=== PATIENT | male | born 1965 | race Caucasian/White ===

== ENCOUNTER 2020-04-09 09:21 | Outpatient (CLI) | payer MEDICARE, SELFPAY ==
[2020-04-09 09:46] LABS: Basophils # 0.1 10^3/uL (0.0-0.1); Basophils % 1.2 %; Eosinophils # 0.5 10^3/uL (0.0-0.8); Eosinophils % 9.2 %; Hematocrit 42.8 % (42.0-52.0); Hemoglobin 14.3 g/dL (11.7-16.6); Lymphocytes # 1.3 10^3/uL (0.8-4.8); Lymphocytes % 25.1 %; Mean Corpuscular HGB Conc 33.4 g/dL (30.0-36.0); Mean Corpuscular Hemoglobin 33.4 pg (28.0-34.0); Mean Platelet Volume 10.2 fL (7.4-10.4); Monocytes # 0.4 10^3/uL (0.2-0.9); Monocytes % 7.9 %; Neutrophils # 2.87 10^3/uL (1.8-7.7); Neutrophils % 56.4 %; Nucleated Red Blood Cells % 0 %; Platelet Count 94 10^3/cmm (130-400); Red Blood Count 4.28 10^6/uL (4.1-5.3); Red Cell Distribution Width 13.5 % (12.1-15.1); White Blood Count 5.1 10^3/uL (4.0-10.0)
[2020-04-09 10:03] LABS: Alanine Aminotransferase 35 U/L (0-41); Alkaline Phosphatase 57 IU/L (40-130); Anion Gap 11.8 (5-19); Aspartate Amino Transferase 45 U/L (0-40); Blood Urea Nitrogen 18 mg/dL (6-20); Calcium 8.9 mg/dL (8.5-10.5); Carbon Dioxide 27 mmol/L (22-29); Chloride 108 mmol/L (98-107); Chol HDL Ratio 2.05 mg/dL (1.0-5.00); Cholesterol 121 mg/dL (0-200); Globulin 2.2 g/dL (1.3-4.6); Glomerular Filtration Rate 100.7 mL/min (90-130); Glucose 142 mg/dL (65-115); HDL Cholesterol 59 mg/dL (60-100); LDL Cholesterol Calculated 53 mg/dL (50-129); Osmolality Calculated 298 mOsm/kg (285-295); Potassium 4.8 mmol/L (3.5-5.1); Sodium 142 mmol/L (136-145); Total Bilirubin 0.7 mg/dL (0.15-1.2); Total Protein 6.2 g/dL (6.6-8.7); Triglycerides 44 mg/dL (0-150)
[2020-04-09 10:04] LABS: Ammonia 33 umol/L (16-60)
[2020-04-09 10:19] LABS: Creatinine Urine, Random 61 mg/dL (39-259)
[2020-04-09 10:21] LABS: Microalbum Creatinine Ratio Ur 16 mg/dL (0-20); Microalbumin Random Urine < 1 ug/dL (0-20)
[2020-04-09 10:54] LABS: Estmated Average Glucose 120; Hemoglobin A1C 5.8 % (4.0-6.0)
== END 2020-04-09 09:22 | disposition home or self-care (01) ==
LOC: LAB 09:26
PROVIDERS: PCP Family Medicine; Visit Provider Family Medicine
DX: K70.30 Alcoholic cirrhosis of liver without ascites (principal); R73.03 Prediabetes; Z13.6 Encounter for screening for cardiovascular disorders
CPT/HCPCS: 80053; 80061; 82044; 82140; 83036; 85025

== ENCOUNTER → 2020-04-24 14:32 | Outpatient (BNVA) | payer MEDICARE, SELFPAY | PROVIDERS: PCP Family Medicine; Visit Provider Internal Medicine | DX: I85.00 Esophageal varices without bleeding (principal); K76.6 Portal hypertension; K70.30 Alcoholic cirrhosis of liver without ascites | CPT/HCPCS: 82105; 87635 ==

== ENCOUNTER 2020-04-28 08:54 | Day surgery (SDC) | payer MEDICARE, SELFPAY ==
[2020-04-25 07:26] VITALS: BMI 20.9
[2020-04-28 09:15] VITALS: BP 104/60; PULSE 61; RESP 18; TEMP 36.2; O2SAT 96
--- NOTE | 2020-04-28 09:19 | W.PM.OPSUD ---
Surgery/Procedure H&P Update DATE OF PROCEDURE: April 28, 2020 DATE H&P PERFORMED: 04/24/20 PREOP DIAGNOSIS: serena PLANNED PROCEDURE: Operation Date: 04/28/20 09:35 Proposed Procedures p EGD 43182 i85.00(Not Applicable) - Darron Tripp MD
[2020-04-28] MEDS: sodium chloride 0.9% 1,000 ML 30 ML IV (09:40)
--- NOTE | 2020-04-28 09:47 | ANES.PREANE2 ---
Pre-Anesthetic Assessment Pre-Anesthetic Assessment: Height/Weight: Height 1.85 m Weight 72.121 kg Temp Pulse Resp BP Pulse Ox 97.1 F L 61 18 104/60 96 04/28/20 09:15 04/28/20 09:15 04/28/20 09:15 04/28/20 09:15 04/28/20 09:15 Preop Diagnosis: serena Proposed Procedure: Operation Date: 04/28/20 09:35 Proposed Procedures p EGD 04927 i85.00(Not Applicable) - Darron Tripp MD Was Beta Ginger taken within 24 hours: Yes Last intake: Intake Last Liquid Date 04/28/20 Last Liquid Time 08:00 Last Solid Date 04/27/20 Last Solid Time 19:00 Social: Social History: No alcohol and No tobacco Exam: Pre-Anes Outpt Exam: alert, oriented x 3, clear to auscultation bilaterally and regular rate & rhythm Airway: Submandibular: WNL Cervical ROM: WNL MP: 1 History/ROS: No significant history except as noted Pulmonary: Pulmonary: None reported CV/HEM: CV/HEM: HTN : : None reported Hepatic: Hepatic: Cirrohsis GI: GI: GERD Metabolic: Metabolic: None reported Musc/skel: Musc/skel: None reported Neuropsych: Neuropsych: None reported Anesthetic Plan: ASA status: 2 Anesthesia: MAC Meds/Allergies Current Medications: Current Medications Generic Name Dose Route Start Last Admin Trade Name Freq PRN Reason Stop Dose Admin Sodium Chloride 1,000 mls @ 30 ml s/hr 04/28/20 09:30 04/28/20 09:40 Sodium Chloride 0.9% IV 30 mls/hr .Q24H RONNELL Administration PFSH Anesthesia PFSH: Medical History Alcoholic cirrhosis of liver Esophageal varices underwent banding in 2016 GERD (gastroesophageal reflux disease) History of abdominal paracentesis due to ascites in 2016 Hypotension Osteoarthritis Portal hypertension Prediabetes Thrombocytopenia Surgical History No pertinent past surgical history Family History Other Cancer Social History (Updated 04/24/20 @ 14:[address]) Smoking and tobacco status: never smoked Alcohol intake: former Year of sobriety/quit date alcohol: 2014 History of recent travel: No Data Anesthesia Cardiac Studies: No Data to Display
[2020-04-28 10:05] VITALS: BP 93/62; PULSE 66; RESP 16; TEMP 36.4; O2SAT 95
--- NOTE | 2020-04-28 10:08 | ANES.PREANE2 ---
Pre-Anesthetic Assessment Pre-Anesthetic Assessment: Height/Weight: Height 1.85 m Weight 72.121 kg Temp Pulse Resp BP Pulse Ox 97.1 F L 61 18 104/60 96 04/28/20 09:15 04/28/20 09:15 04/28/20 09:15 04/28/20 09:15 04/28/20 09:15 Preop Diagnosis: serena Proposed Procedure: Operation Date: 04/28/20 09:35 Proposed Procedures p EGD 21730 i85.00(Not Applicable) - Darron Tripp MD Last intake: Intake Last Liquid Date 04/28/20 Last Liquid Time 08:00 Last Solid Date 04/27/20 Last Solid Time 19:00 Social: Social History: No alcohol and No tobacco Exam: Pre-Anes Outpt Exam: alert, oriented x 3, clear to auscultation bilaterally and regular rate & rhythm Airway: Submandibular: WNL Cervical ROM: WNL MP: 1 Dentition: Caps History/ROS: No significant complaints Pulmonary: Pulmonary: None reported CV/HEM: CV/HEM: None reported Meds/Allergies Current Medications: Current Medications Generic Name Dose Route Start Last Admin Trade Name Freq PRN Reason Stop Dose Admin Sodium Chloride 1,000 mls @ 30 ml s/hr 04/28/20 09:30 04/28/20 09:40 Sodium Chloride 0.9% IV 30 mls/hr .Q24H RONNELL Administration PFSH Anesthesia PFSH: Medical History Alcoholic cirrhosis of liver Esophageal varices underwent banding in 2016 GERD (gastroesophageal reflux disease) History of abdominal paracentesis due to ascites in 2016 Hypotension Osteoarthritis Portal hypertension Prediabetes Thrombocytopenia Surgical History No pertinent past surgical history Family History Other Cancer Social History (Updated 04/24/20 @ 14:00 by Sujatha Alberts, CT) Smoking and tobacco status: never smoked Alcohol intake: former Year of sobriety/quit date alcohol: 2014 History of recent travel: No Data Anesthesia Cardiac Studies: No Data to Display
[2020-04-28 10:35] VITALS: BP 112/73; PULSE 56; RESP 16; O2SAT 99
--- NOTE | 2020-04-28 15:06 | ANE.PACU2 ---
Inpatient post-anesthesia follow up: Airway intact: Yes Vital signs: Temperature 97.5 F Pulse Rate 56 Respiratory Rate 16 Blood Pressure 112/73 Pulse Oximetry 99 Oxygen Delivery Me thod Room Air Oxygen Flow Rate Fraction of Inspir ed Oxygen Hydration adequate: Yes Nausea and vomiting: No Pain level: 1 Mental status: Baseline
[2020-04-29 07:02] LABS: H. Pylori / CLO Test Negative
== END 2020-04-28 11:10 | disposition home or self-care (01) ==
PROVIDERS: PCP Family Medicine; Visit Provider Internal Medicine
PROC: 0DJ08ZZ Inspection of Upper Intestinal Tract, Via Natural or Artificial Opening Endoscopic (ICD-10-PCS; CPT 43235; principal; 2020-04-28 09:35)
DX: K22.70 Barrett's esophagus without dysplasia (principal); I10 Essential (primary) hypertension; K21.9 Gastro-esophageal reflux disease without esophagitis; K74.60 Unspecified cirrhosis of liver; K76.6 Portal hypertension; K29.60 Other gastritis without bleeding
CPT/HCPCS: 12345; 43239; 87077; 88305; J2704; J3010; J7030

== ENCOUNTER 2020-05-29 09:01 | Outpatient (CLI) | payer MEDICARE, OTHER, SELFPAY ==
--- NOTE | 2020-05-29 09:30 | US_ITS ---
WS: [id number] RIGHT UPPER QUADRANT ULTRASOUND HISTORY: Cirrhosis. COMPARISON: None available. Liver: 14.0 cm in length. Normal size liver. There is a very mild coarsening of the echotexture. Surf abhi of the liver is very slightly undulating. No bile duct dilatation. Gallbladder: Normally distended gallbladder with no stones or wall thickening. CBD: 0.4 cm Pancreas: Normal size and echogenicity. Right kidney: 9.8 cm in length. Normal size and echogenicity. No hydronephrosis or mass. Aorta and IVC: Unremarkable abdominal aorta and IVC. No ascites. US/US liver [id number] IMPRESSION: Changes of mild hepatic cirrhosis. Otherwise negative.
== END 2020-05-29 09:02 | disposition home or self-care (01) ==
LOC: RAD 09:09
PROVIDERS: PCP Family Medicine; Visit Provider Internal Medicine
DX: K70.30 Alcoholic cirrhosis of liver without ascites (principal)
CPT/HCPCS: 76705

== ENCOUNTER 2020-09-07 11:16 | Emergency (ER) | payer MEDICARE, SELFPAY ==
[2020-09-07 11:23] VITALS: BP 145/80; PULSE 60; RESP 18; TEMP 37.1; O2SAT 99; BMI 20.9
[2020-09-07 12:04] VITALS: BP 138/68; PULSE 60; O2SAT 96
--- NOTE | 2020-09-07 12:15 | CTR_ITS ---
PROCEDURE INFORMATION: Exam: CT Chest Without Contrast; Diagnostic Exam date and time: 09/07/2020 12:19 PM Age: 55 years old Clinical indication: Injury or trauma; Fall; Rlq; Blunt trauma (contusions or hematomas) TECHNIQUE: Imaging protocol: Diagnostic computed tomography of the chest without contrast. Radiation optimization: All CT scans at this facility use at least one of these dose optimization techniques: automated exposure control; mA and/or kV adjustment per patient size (includes targeted exams where dose is matched to clinical indication); or iterative reconstruction. COMPARISON: No relevant prior studies available. RADIATION DOSE METRICS: Total DLP (mGy-cm): 1182.72 FINDINGS: Thyroid: The bilateral thyroid lobes are unremarkable. Lungs: Incidental partial medial left lower lobe pulmonary-systemic venous return (series 2, images 43-57; 602, images 33-37) Pleural spaces: No pneumothorax identified. No pleural effusion demonstrated. Heart: Atherosclerotic coronary calcifications are noted involving the left main and LAD coronary arteries. Mediastinal space: No mediastinal hematoma identified. Aorta: Mild aortic arch and branch atherosclerotic calcification without ectasia. Lymph nodes: No enlarged lymph nodes. Bones/joints: No acute thoracic spine or sternal fracture identified. Nondisplaced lateral left 8th rib fracture (series 601, image 15; series 602, image 32). Thoracic spine vertebral body marginal osteophytes are noted at multiple levels. Diffuse osteopenia. No acute thoracic spine or sternal fracture identified. Soft tissues: Mild bilateral gynecomastia. IMPRESSION: 1. Nondisplaced lateral left 8th rib fracture. 2. Coronary atherosclerosis. 3. Please see the abdomen/pelvis CT report of the same date for additional findings. PROCEDURE INFORMATION: Exam: CT Abdomen And Pelvis Without Contrast Exam date and time: 09/07/2020 12:19 PM Age: 55 years old Clinical indication: Injury or trauma; Fall; Rlq; Blunt trauma (contusions or hematomas) TECHNIQUE: Imaging protocol: Computed tomography of the abdomen and pelvis without contrast. Radiation optimization: All CT scans at this facility use at least one of these dose optimization techniques: automated exposure control; mA and/or kV adjustment per patient size (includes targeted exams where dose is matched to clinical indication); or iterative reconstruction. COMPARISON: No relevant prior studies available. RADIATION DOSE METRICS: Total DLP (mGy-cm): 1182.72 FINDINGS: Liver: There is a nodular contour to the liver and hypertrophy of the left lobe lateral segment and caudate lobe, consistent with hepatic cirrhosis. Heterogeneous right lobe hepatic parenchymal density, with areas of hypoattenuation within portions of hepatic segments 8, 5 and 6. Gallbladder and bile ducts: The gallbladder is partially contracted. Pancreas: Normal. No ductal dilation. Spleen: Normal. No splenomegaly. Adrenal glands: Normal. No mass. Kidneys and ureters: Right mid renal posterior 1.7 mm calyceal calculus. No specific evidence of acute obstructive uropathy. Stomach and bowel: Nonspecific mild wall thickening of left upper pelvic and left lower abdominal small bowel loops (series 605, image 32). Appendix: The vermiform appendix is not identified on this examination. There is, however, no pericecal abnormality to suggest appendicitis. The vermiform appendix is normal. Intraperitoneal space: Unremarkable. No free air. No significant fluid collection. Vasculature: Possible cavernous transformation of the portal vein. A retroaortic left renal vein is present. Spontaneous splenorenal shunt. Mild aortic atherosclerotic calcification without aneurysm. The right iliac arteries show mild atherosclerotic calcifications without evidence of aneurysm. Lymph nodes: No enlarged lymph nodes. Urinary bladder: Unremarkable as visualized. Reproductive: Unremarkable as visualized. Bones/joints: Diffuse osteopenia. Mild L5-S1 spondylosis. No acute lumbar spine fracture identified. No pelvic or sacral fracture identified. Soft tissues: A small left inguinal hernia is present containing only intra-abdominal fat. CT/CT chest abd pel wo con IMPRESSION: 1. Lack of IV contrast reduces sensitivity to abdominal solid visceral organ traumatic injury. IV contrast enhanced imaging may add additional useful information if not contraindicated. 2. Hepatic cirrhosis. Heterogeneous parenchymal density. Correlation with AFP recommended. MRI recommended for further evaluation. 3. 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 4. Spontaneous splenorenal shunt. 5. Nonspecific mild wall thickening of left upper pelviclower abdominal small bowel loops. This may represent hepatic enteropathy, but given the history of trauma, bowel bowel injury is difficult to exclude. Contrast-enhanced imaging may be helpful. 6. Right renal calyceal lithiasis. 7. Please see the CT chest report of the same date for additional findings. Radiation Dose CTDIVOL = (mGy): DLP = 1182.72~1182.72 (mGy-cm)
--- NOTE | 2020-09-07 12:15 | CTR_ITS ---
PROCEDURE INFORMATION: Exam: CT Head Without Contrast Exam date and time: 09/07/2020 12:19 PM Age: 55 years old Clinical indication: Pain and injury or trauma; Fall; Blunt trauma (contusions or hematomas); Headache; Additional info: Fall. Headache TECHNIQUE: Imaging protocol: Computed tomography of the head without contrast. Radiation optimization: All CT scans at this facility use at least one of these dose optimization techniques: automated exposure control; mA and/or kV adjustment per patient size (includes targeted exams where dose is matched to clinical indication); or iterative reconstruction. COMPARISON: No relevant prior studies available. RADIATION DOSE METRICS: Total DLP (mGy-cm): 867.49 FINDINGS: Brain: Normal. No hemorrhage. Unremarkable white matter. No mass effect. Cerebral ventricles: No hydrocephalus or evidence of increased intracranial pressure. Bones/joints: No acute abnormality. No acute fracture. Paranasal sinuses: Visualized sinuses are unremarkable. No fluid levels. Mastoid air cells: Visualized mastoid air cells are well aerated. Soft tissues: Unremarkable. CT/CT head wo con* [id number] IMPRESSION: No acute intracranial injury identified. Radiation Dose CTDIVOL = (mGy): DLP = 867.49 (mGy-cm)
--- NOTE | 2020-09-07 12:15 | CTR_ITS ---
PROCEDURE INFORMATION: Exam: CT Cervical Spine Without Contrast Exam date and time: 09/07/2020 12:19 PM Age: 55 years old Clinical indication: Injury or trauma; Fall; Blunt trauma; Additional info: Fall/neck pain TECHNIQUE: Imaging protocol: Computed tomography images of the cervical spine without contrast. Radiation optimization: All CT scans at this facility use at least one of these dose optimization techniques: automated exposure control; mA and/or kV adjustment per patient size (includes targeted exams where dose is matched to clinical indication); or iterative reconstruction. COMPARISON: No relevant prior studies available. RADIATION DOSE METRICS: Total DLP (mGy-cm): 545.72 FINDINGS: Bones/joints: Mild C5-C6 retrolisthesis with slight spondylosis. Discs/Spinal canal/Neural foramina: Mild right C4-C5 primary facet osteoarthritis. Moderate left C5-C6 neural foraminal narrowing. Lungs: A 3.5 mm noncalcified pulmonary nodule is noted in the apical segment of the right upper lobe (LOC 177). Mild bilateral apical pleuroparenchymal scarring. Vasculature: Bilateral carotid atherosclerotic calcifications. Soft tissues: Unremarkable. CT/CT cervical spin wo con* [id number] IMPRESSION: 1. Degenerative changes as above. 2. No acute cervical spinal bony injury identified. 3. Noncalcified right upper lobe pulmonary nodule. For patients at low risk (minimal or absent history of smoking and of other known risk factors), no routine follow-up is indicated. For patients at high risk (history of smoking or of other known risk factors), consider optional CT at 12 months. (Gordon et al., Fleischner Society, 2017). Radiation Dose CTDIVOL = (mGy): DLP = 545.72 (mGy-cm)
--- NOTE | 2020-09-07 12:17 | W.ED.FALL ---
HPI - Fall General: Chief Complaint: Fall Stated Complaint: FELL DOWN STAIRS/NOW R SIDE PAIN/SWELLING Time Seen by Provider: 09/07/20 12:04 History of Present Illness: HPI Narrative: The patient is a 55-year-old male with past medical history cirrhosis who comes to the ER after a fall. He says he fell down 6 wooden stairs after he slipped on the morning do and he is complaining of left lateral rib pain and right lower abdominal pain and swelling right above his hip bone. Also headache and neck pain related to the fall but no significant injuries there. He was able to walk after the injury but the pain continues to get more severe and he is worried about the swelling on the right side with his liver cirrhosis. MD complaint: fall Fall from: standing and down stairs (#) (6) Fall witnessed: no Place fall occurred: home Loss of consciousness: None Prolonged down time: no Symptoms prior to fall: none Context: tripped/slipped Location of injury: head, neck, chest and abdomen Severity: moderate Quality: sharp Associated symptoms-after fall: Reports abdominal pain and neck pain; Denies chest pain, confusion, difficulty walking or headache(s) Review of Systems General: Reports: 10 or more systems reviewed and unremarkable except in HPI and below Const: Denies: fatigue Eyes: Denies: change in vision, blurry vision or eye redness ENMT: Denies: throat pain, swelling of lips/tongue, ear or mastoid pain or nasal congestion Card: Denies: chest pain, palpitations, irregular heart rhythm, edema, dyspnea on exertion or orthopnea Resp: Reports: other (Pain with inspiration); Denies: dyspnea, productive cough or non-productive cough GI: Reports: abdominal pain; Denies: diarrhea or GI cramping : Denies: flank pain, urinary frequency or urinary urgency Musc: Reports: neck pain and back pain; Denies: extremity pain, joint pain, joint redness, limited range of motion or muscle weakness Skin/Breast: Denies: rash, pruritus, erythema, skin pain or skin tenderness Neuro: Denies: headache(s), numbness in extremities, weakness in extremities, sensory changes, difficulty walking, dizziness, confusion or Slurred speech present Psych: Denies: anxiety or depression Endo: Denies: polyuria All/Imm: Denies: urticaria, throat swelling or tongue swelling PFSH ED PFSH: Medical History (Updated 09/07/20 @ 16:32 by Micah Marrufo MD) Alcoholic cirrhosis of liver Esophageal varices underwent banding in 2016 GERD (gastroesophageal reflux disease) History of abdominal paracentesis due to ascites in 2016 Hypotension Osteoarthritis Portal hypertension Prediabetes Thrombocytopenia Surgical History No pertinent past surgical history Family History Other Cancer Social History Smoking and tobacco status: never smoked Alcohol intake: former Year of sobriety/quit date alcohol: 2014 History of recent travel: No Physical Exam Const: COMMON NORMALS: no acute distress, average body habitus, patient oriented x3, no limitations, healthy appearing, alert and well nourished GENERAL APPEARANCE: cooperative, comfortable, well kempt and well developed ORIENTATION/CONSCIOUSNESS: Yes awake, Yes oriented to person, Yes oriented to place and Yes oriented to time HENMT: COMMON NORMALS: normocephalic, external ears normal and Normal external nose present HEAD & SCALP: normal to inspection and normocephalic NOSE: Normal external nose present EXTERNAL EAR: Yes external ears normal MOUTH: Normal oral and palatal mucosa present THROAT: posterior oropharynx normal Eye: COMMON NORMALS: Equal, round and reactive pupils present and EOMs intact bilaterally GENERAL EYE: appearance normal, both eyes and all related structures PUPIL: Yes Equal, round and reactive pupils present Neck/C-Spine: COMMON NORMALS: full ROM, no lymphadenopathy, no meningeal signs and no JVD GENERAL: Yes normal visual inspection OTHER: Mild paracervical muscular tenderness. No significant bony tenderness or step-offs. His head has no significant bruising however he is complaining of a headache. Lymph: LYMPHATIC: no lymphadenopathy noted Chest: COMMONS NORMALS: normal inspection of the chest and normal palpation of entire chest wall Resp: COMMON NORMALS: normal respiratory effort, No retractions, No use of accessory muscles, clear to auscultation bilaterally and percussion normal EFFORT & INSPECTION: Yes able to speak in complete sentences AUSCULTATION: clear to auscultation bilaterally PERCUSSION: percussion normal Cardio: COMMON NORMALS: no JVD, regular rate, regular rhythm, S1 normal heart sound present, S2 normal heart sound present and Peripheral pulses 2+ throughout RATE: regular rate RHYTHM: regular rhythm HEART SOUNDS: S1 normal heart sound present and S2 normal heart sound present PERIPHERAL PULSES: Peripheral pulses 2+ throughout GI: COMMON NORMALS: Normal to inspection, nondistended, normoactive bowel sounds present, Soft to palpation, non-tender and no masses INSPECTION: Yes normal to inspection PALPATION: Yes Soft to palpation GI image (male): 1. Swelling and bruising likely underlying hematoma. 2. Location of worst rib tenderness : COMMON NORMALS: Yes no CVA tenderness BLADDER/KIDNEY EXAM: Yes no CVA tenderness Back/Pelvis: COMMON NORMALS: no CVA tenderness, thoracic and lumbar spine normal to inspection, no thoracic nor lumbar tenderness and thoraco-lumbar ROM normal Extremity: COMMON NORMALS: normal to inspection, full ROM, capillary refill normal, no joint enlargement and no pedal edema GENERAL: Yes normal exam except as noted Neuro: COMMON NORMALS: patient oriented x3, CN's II-XII intact bilaterally, moves all extremities, no focal motor deficits, no sensory deficits noted and gait normal SENSORIUM/ORIENTATION: Yes alert, Yes oriented to person, Yes oriented to place and Yes oriented to time MENINGEAL SIGNS: Yes no meningeal signs Psych: COMMON NORMALS: mental status grossly normal, Normal thought process present, cooperative, normal affect and speech normal APPEARANCE: Yes well kempt ATTITUDE: Yes calm SPEECH: Yes normal speech THOUGHT PROCESS: Normal thought process present Skin: COMMON NORMALS: no rashes or lesions noted GENERAL SKIN EXAM: no rashes or lesions noted Course Vital Signs: Vital signs: Vital Signs Temperature 98.7 F 09/07/20 11:23 Pulse Rate 62 09/07/20 14:15 Respiratory Rate 18 09/07/20 16:20 Blood Pressure 128/61 09/07/20 14:15 Pulse Oximetry 98 09/07/20 16:20 MDM - Fall MDM Narrative: Medical decision making narrative: The patient has a left eighth rib fracture consistent with his pain. CT abdomen pelvis with contrast shows a grade 3 splenic injury. Discussed with Dr. Mann who recommends transfer to a trauma center. Discussed with the patient and he prefers transfer to [facility]. Discussed with Dr. Vann in the ED who accepts there. Pt stable in ED. Lab Data: Labs: Lab Results 09/07/20 09/07/2009/07/21 Range/Units 12:50 12:50 12:50 WBC 7.4 (4.0-10.0) 10^3/ uL RBC 4.43 (4.1-5.3) 10^6/u L Hgb 14.6 (11.7-16.6) g/dL Hct 42.6 (42.0-52.0) % MCV 96.2 H (80-94) fL MCH 33.0 (28.0-34.0) pg MCHC 34.3 (30.0-36.0) g/dL RDW 13.4 (12.1-15.1) % Plt Count 112 L (130-400) 10^3/c mm MPV 10.5 H (7.4-10.4) fL Neut % (Auto) 67.5 % Lymph % (Auto) 16.7 % [place] % (Auto) 8.9 % Eos % (Auto) 5.7 % Baso % (Auto) 0.9 % Neut # (Auto) 5.00 (1.8-7.7) 10^3/u L Lymph # (Auto) 1.2 (0.8-4.8) 10^3/u L [place] # (Auto) 0.7 (0.2-0.9) 10^3/u L Eos # (Auto) 0.4 (0.0-0.8) 10^3/u L Baso # (Auto) 0.1 (0.0-0.1) 10^3/u L Nucleated RBC % (a uto) 0 % Nucleated RBCs # 0.0 /100WBC PT 15.10 H (12.1-14.9) SECO NDS INR 1.15 (0.8-1.2) Sodium 141 (136-145) mmol/L Potassium 4.1 (3.5-5.1) mmol/L Chloride 106 (98-107) mmol/L Carbon Dioxide 25 (22-29) mmol/L Anion Gap 14.1 (5-19) BUN 16 (6-20) mg/dL Creatinine 0.5 L (0.7-1.2) mg/dL GFR Calculation 172.6 H (90-130) mL/min Glucose 144 H (65-115) mg/dL Calculated Osmolal ity 296 H (285-295) mOsm/k g Calcium 9.2 (8.5-10.5) mg/dL Total Bilirubin 1.0 (0.15-1.2) mg/dL AST 38 (0-40) U/L ALT 27 (0-41) U/L Alkaline Phosphata se 53 (40-130) IU/L Total Protein 6.3 L (6.6-8.7) g/dL Albumin 3.9 (3.5-5.2) g/dL Globulin 2.4 (1.3-4.6) g/dL Discharge Plan Discharge Patient Disposition: Xfer Short-Term Hosp Clinical Impression: Spleen laceration, Closed rib fracture, Contusion Condition: Stable Referrals: Meredith Vigil DO [Primary Care Provider] - Coding Level of Care Code ED Hydrography Teacher for Chg Fwd Exam Comprehensive
[2020-09-07 13:02] VITALS: BP 122/74; PULSE 60; O2SAT 95
[2020-09-07 13:03] LABS: Basophils # 0.1 10^3/uL (0.0-0.1); Basophils % 0.9 %; Eosinophils # 0.4 10^3/uL (0.0-0.8); Eosinophils % 5.7 %; Hematocrit 42.6 % (42.0-52.0); Hemoglobin 14.6 g/dL (11.7-16.6); Lymphocytes # 1.2 10^3/uL (0.8-4.8); Lymphocytes % 16.7 %; Mean Corpuscular HGB Conc 34.3 g/dL (30.0-36.0); Mean Corpuscular Volume 96.2 fL (80-94); Mean Platelet Volume 10.5 fL (7.4-10.4); Monocytes # 0.7 10^3/uL (0.2-0.9); Monocytes % 8.9 %; Neutrophils % 67.5 %; Nucleated Red Blood Cells % 0 %; Platelet Count 112 10^3/cmm (130-400); Red Blood Count 4.43 10^6/uL (4.1-5.3); Red Cell Distribution Width 13.4 % (12.1-15.1); White Blood Count 7.4 10^3/uL (4.0-10.0)
[2020-09-07 13:14] LABS: INR 1.15 (0.8-1.2)
--- NOTE | 2020-09-07 13:43 | CTR_ITS ---
PROCEDURE INFORMATION: Exam: CT Abdomen And Pelvis With Contrast Exam date and time: 09/07/2020 2:35 PM Age: 55 years old Clinical indication: Injury or trauma; Blunt; Ruq; Patient HX: R sided abd pain after fall down stairs HX of cirrhosis and portal HTN; Additional info: Portal vein cavernous transformation? Fall. TECHNIQUE: Imaging protocol: Computed tomography of the abdomen and pelvis with contrast. Radiation optimization: All CT scans at this facility use at least one of these dose optimization techniques: automated exposure control; mA and/or kV adjustment per patient size (includes targeted exams where dose is matched to clinical indication); or iterative reconstruction. Contrast material: OMNI 300; Contrast volume: 95 ml; Contrast route: INTRAVENOUS (IV); COMPARISON: CT chest abd pel wo con 09/07/2020 12:46 PM RADIATION DOSE METRICS: Total DLP (mGy-cm): 837.58 FINDINGS: Lungs: Communication between the left lower lobe pulmonary vein and the paraesophageal varices is demonstrated (series 2, images 4-7). Mediastinal space: Distal paraesophageal varices measuring up to 8.5 mm caliber. Liver: There is a nodular contour to the liver and hypertrophy of the left lobe lateral segment and caudate lobe, and band like architectural distortion of the right lobe, consistent with hepatic cirrhosis, without mass identified. Gallbladder and bile ducts: Normal. No calcified stones. No ductal dilation. Pancreas: Normal. No ductal dilation. Spleen: Two Peripheral small splenic linear hypoenhancing foci in the inferior posterior spleen (series 601, image 19), the larger measuring up to 19 mm in length (grade 3 due to multiplicity), not extending to the capsular surface and not of involving the hilar vessels. In retrospect, the previous precontrast images demonstrate very subtle hyperdensity in this region. No subcapsular or perisplenic fluid. Adrenal glands: Normal. No mass. Kidneys and ureters: Right mid renal posterior 1.7 mm calyceal calculus. No specific evidence of acute obstructive uropathy. Stomach and bowel: Previously suggested left lower abdominal and upper pelvic small bowel wall thickening not currently identified. Appendix: The vermiform appendix is not identified on this examination. There is, however, no pericecal abnormality to suggest appendicitis. Intraperitoneal space: Trace posterior pelvic peritoneal fluid. No pneumoperitoneum. Vasculature: Patent normal caliber main portal vein; tortuous hepatic artery accounts for previous appearance. A retroaortic left renal vein is present. Spontaneous splenorenal shunt. Mild aortic atherosclerotic calcification without aneurysm. The right iliac arteries show mild atherosclerotic calcifications without evidence of aneurysm. Lymph nodes: No enlarged lymph nodes. Urinary bladder: Unremarkable as visualized. Reproductive: Unremarkable as visualized. Bones/joints: Diffuse osteopenia. Mild L5-S1 spondylosis. No acute lumbar spine fracture identified. No pelvic or sacral fracture identified. . Soft tissues: Unremarkable. CT/CT abdomen pelvis w con* [id number] IMPRESSION: 1. Grade 3 splenic injury. 2. Hepatic cirrhosis. 3. Patent normal caliber main portal vein. 4. Spontaneous splenorenal shunt. 5. Distal paraesophageal varices. 6. Right renal calyceal lithiasis. Radiation Dose CTDIVOL = (mGy): DLP = 837.58 (mGy-cm)
[2020-09-07 13:47] LABS: Alanine Aminotransferase 27 U/L (0-41); Albumin Level 3.9 g/dL (3.5-5.2); Alkaline Phosphatase 53 IU/L (40-130); Anion Gap 14.1 (5-19); Aspartate Amino Transferase 38 U/L (0-40); Blood Urea Nitrogen 16 mg/dL (6-20); Calcium 9.2 mg/dL (8.5-10.5); Carbon Dioxide 25 mmol/L (22-29); Chloride 106 mmol/L (98-107); Globulin 2.4 g/dL (1.3-4.6); Glomerular Filtration Rate 172.6 mL/min (90-130); Glucose 144 mg/dL (65-115); Osmolality Calculated 296 mOsm/kg (285-295); Potassium 4.1 mmol/L (3.5-5.1); Sodium 141 mmol/L (136-145); Total Protein 6.3 g/dL (6.6-8.7)
[2020-09-07 14:15] VITALS: BP 128/61; PULSE 62; O2SAT 94
[2020-09-07] MEDS: iohexol 300 mg/mL 100 mL Btl IV (14:47)
[2020-09-07 16:20] VITALS: RESP 18; O2SAT 98
[2020-09-07] MEDS: HYDROmorphone 1 mg/mL INJ 1 mL 0.5 MG IVP (16:20)
[2020-09-07 17:48] VITALS: BP 121/81; PULSE 87; RESP 18; O2SAT 94
== END 2020-09-07 17:50 | disposition short-term general hospital (02) ==
PROVIDERS: Emergency Provider Family Medicine; PCP Family Medicine
DX: S22.32XA Fracture of one rib, left side, initial encounter for closed fracture (principal); S36.031A Moderate laceration of spleen, initial encounter; S30.1XXA Contusion of abdominal wall, initial encounter; W10.8XXA Fall (on) (from) other stairs and steps, initial encounter
CPT/HCPCS: 70450; 71250; 72125; 74176; 74177; 80053; 85025; 85610; 96374; 99283; J1170; Q9967

== ENCOUNTER → 2021-03-16 09:11 | Outpatient (BNVA) | payer MEDICARE, SELFPAY | PROVIDERS: PCP Family Medicine; Visit Provider Family Medicine | DX: Z00.00 Encounter for general adult medical examination without abnormal findings (principal); R73.03 Prediabetes; R35.1 Nocturia | CPT/HCPCS: 80053; 80061; 82043; 83036; 84153; 85025 ==

== ENCOUNTER → 2021-03-18 13:00 | Outpatient (BNVA) | payer MEDICARE, SELFPAY | PROVIDERS: PCP Family Medicine; Visit Provider Nurse Practitioner Family | DX: Z20.822 Contact with and (suspected) exposure to COVID-19 (principal) | CPT/HCPCS: 87635 ==

== ENCOUNTER → 2021-06-18 09:22 | Outpatient (BNVA) | payer MEDICARE, SELFPAY | PROVIDERS: PCP Family Medicine; Visit Provider Family Medicine | DX: R73.03 Prediabetes (principal); K29.70 Gastritis, unspecified, without bleeding | CPT/HCPCS: 80053; 83036 ==

== ENCOUNTER → 2021-08-14 13:20 | Outpatient (BNVA) | payer MEDICARE, SELFPAY | PROVIDERS: PCP Family Medicine; Visit Provider Nurse Practitioner | DX: M79.641 Pain in right hand (principal) | CPT/HCPCS: 73130 ==

== ENCOUNTER → 2021-09-14 08:43 | Outpatient (BNVA) | payer MEDICARE, SELFPAY | PROVIDERS: PCP Family Medicine; Visit Provider Family Medicine | DX: R73.03 Prediabetes (principal); K70.30 Alcoholic cirrhosis of liver without ascites; M19.041 Primary osteoarthritis, right hand; K29.70 Gastritis, unspecified, without bleeding | CPT/HCPCS: 80053; 82140; 83036; 85025 ==

== ENCOUNTER → 2021-09-29 10:55 | Outpatient (BNVA) | payer MEDICARE, SELFPAY | PROVIDERS: PCP Family Medicine; Visit Provider Internal Medicine | DX: K70.30 Alcoholic cirrhosis of liver without ascites (principal); R73.03 Prediabetes; I85.00 Esophageal varices without bleeding; K22.70 Barrett's esophagus without dysplasia | CPT/HCPCS: 82105; 83525; 84681 ==

== ENCOUNTER 2021-10-05 07:31 | Day surgery (SDC) | payer MEDICARE, SELFPAY ==
[2021-10-01 13:44] VITALS: BMI 20.9
--- NOTE | 2021-10-05 07:15 | P.HP_ITS ---
Same Day Surgery H&P Indication for Procedure/HPI DATE OF PROCEDURE: October 05, 2021 CHIEF COMPLAINT/INDICATIONFOR SURGICAL PROCEDURE: History of esophageal varices history of esophageal varices PREOP DIAGNOSIS: serena PLANNED PROCEDURE: Operation Date: 10/05/21 08:45 Proposed Procedures p EGD 74799/k22.70(Not Applicable) - Darron Tripp MD Medications/Allergies* Home Medications Medication Instructions Recorded Confirmed Type L.acidoph, paracasei,B. lactis 10 1 cell PO DAILY@0700 cap 02/27/20 10/01/21 History billion cell capsule (Digestive Advantage Advanced Probiotic) blood sugar diagnostic (OneTouch #10 each 02/27/20 09/29/21 History Ultra Blue Test Strip) [id number]-vfgkjgzsj-jptw 333 mg-133 1 tab PO BID@0700,1900 tab 02/27/20 10/01/21 History mg-5 mg tablet vit B complex 100 combo no.2 100 1 tab PO BID@0700,1900 tab 02/27/20 10/01/21 History mg tablet,extended release (B-100 Complex ER) Allergies/Adverse Reactions Allergy/AdvReac Type Severity Reaction Status Date / Time melon Allergy Intermediate ALGY-Difficulty Verified 10/01/21 13:42 Swallowing morphine Allergy Mild unknown Verified 10/01/21 13:42 Pertinent History/Comorbid Conditions* Medical History (Updated 09/29/21 @ 10:51 by Darron Tripp MD) Alcoholic cirrhosis of liver Esophageal varices underwent banding in 2015 GERD (gastroesophageal reflux disease) History of abdominal paracentesis due to ascites in 2015 History of COVID-08 Mar 2019 Hypotension Lyme arthritis Osteoarthritis Portal hypertension Prediabetes Ruptured spleen Thrombocytopenia Tick bite of right shoulder with infection Surgical History (Updated 02/27/20 @ 14:02 by Meredith Vigil DO) No pertinent past surgical history Family History (Updated 02/27/20 @ 13:54 by Cierra Tijerina LPN) Cancer Social History Smoking and tobacco status: never smoked Alcohol intake: former Year of sobriety/quit date alcohol: 2014 History of recent travel: No Pertinent Exam Findings alert, oriented x 3, clear to auscultation bilaterally, regular rate & rhythm, operative site marked and procedure specific exam findings Recommendations Surgery/Procedure today Coding Level of Care Code Acute Electronics Technician Apprentice for alfredo Valentine
[2021-10-05 07:54] VITALS: BP 128/81; PULSE 56; RESP 18; TEMP 36.2; O2SAT 97
[2021-10-05] MEDS: sodium chloride 0.9% 1,000 ML 30 ML IV (08:03)
--- NOTE | 2021-10-05 09:14 | ANES.PREANE2 ---
Pre-Anesthetic Assessment Height/Weight: Height 1.83 m Weight 70.307 kg Temp Pulse Resp BP Pulse Ox 97.2 F L 56 L 18 128/81 97 10/05/21 07:54 10/05/21 07:54 10/05/21 07:54 10/05/21 07:54 10/05/21 07:54 Preop Diagnosis: serena Operation Date: 10/05/21 08:45 Proposed Procedures p EGD 02113/k22.70(Not Applicable) - Darron Tripp MD Familial anesthetic complications: none Last intake: Intake Last Liquid Date 10/04/21 Last Liquid Time 20:00 Last Solid Date 10/04/21 Last Solid Time 19:00 Social No alcohol (sober 7 years) Airway Submandibular: within normal limits Cervical ROM: within normal limits Mallampati: Class II Dentition: full Pulmonary None reported CV/HEM hypotension None reported Hepatic Cirrhosis (related to ETOH) GI Gastroesophageal Reflux Disease Metabolic prediabetic per patient Musc/skel Osteoarthritis/DJD Neuropsych None reported Anesthetic Plan ASA status: 3 Anesthesia: MAC Medications/Allergies Home Medications Medication Instructions Recorded Confirmed Last Taken Type L.acidoph, paracasei,B. lactis 10 1 cell PO DAILY@0700 cap 02/27/20 10/05/21 10/05/21 History billion cell capsule (Digestive Advantage Advanced Probiotic) blood sugar diagnostic ([place] InteractiveTouch #10 each 02/27/20 10/05/21 Unknown History Ultra Blue Test Strip) [id number]-ecopriiwx-mrmo 333 mg-133 1 tab PO BID@0700,1900 tab 02/27/20 10/05/21 10/05/21 History mg-5 mg tablet vit B complex 100 combo no.2 100 1 tab PO BID@0700,1900 tab 02/27/20 10/05/21 10/05/21 History mg tablet,extended release (B-100 Complex ER) lancets 30 gauge (OneTouch [place] #100 ea 05/19/20 10/05/21 Unknown Rx Lancets) carvedilol 3.125 mg tablet (Coreg) 3.125 mg PO Q12H #180 tab 06/18/21 10/05/21 10/05/21 Rx dexlansoprazole 60 mg 60 mg PO DAILY@0700 #90 cap 09/14/21 10/05/21 10/05/21 Rx capsule,biphase delayed release (Dexilant) sucralfate 1 gram tablet (Carafate) 1 g PO Q6H PRN #120 tab 09/14/21 10/05/21 10/05/21 Rx lactulose 20 gram/30 mL oral 30 g (45 mL) PO TID #1200 ml 09/15/21 10/05/21 10/05/21 Rx solution Allergies Allergy/AdvReac Type Severity Reaction Status Date / Time melon Allergy Intermediate ALGY-Difficulty Verified 10/01/21 13:42 Swallowing morphine Allergy Mild unknown Verified 10/01/21 13:42 Current Medications Generic Name Dose Route Start Last Admin Trade Name Freq PRN Reason Stop Dose Admin Sodium Chloride 1,000 mls @ 30 mls/hr 10/05/21 07:45 10/05/21 08:03 Sodium Chloride 0.9% IV 10/06/21 07:44 30 mls/hr .Q24H RONNELL Administration PFSH Anesthesia Medical History Alcoholic cirrhosis of liver Esophageal varices underwent banding in 2015 GERD (gastroesophageal reflux disease) History of abdominal paracentesis due to ascites in 2015 History of COVID-19 Feb 2019 Hypotension Lyme arthritis Osteoarthritis Portal hypertension Prediabetes Ruptured spleen Thrombocytopenia Tick bite of right shoulder with infection Surgical History No pertinent past surgical history Family History Other Cancer Social History Smoking and tobacco status: never smoked Alcohol intake: former Year of sobriety/quit date alcohol: 2014 History of recent travel: No Data Anesthesia Cardiac Studies: No Data to Display
[2021-10-05 09:39] VITALS: BP 118/73; PULSE 61; RESP 16; TEMP 36.6; O2SAT 97
[2021-10-05 10:34] LABS: Ammonia 53 umol/L (16-60)
--- NOTE | 2021-10-05 14:40 | ANE.PACU2 ---
Inpatient post-anesthesia follow up: Airway intact: Yes Vital signs: Temperature 98 F Pulse Rate 61 Respiratory Rate 16 Blood Pressure 118/73 Pulse Oximetry 97 Oxygen Delivery Me thod Nasal Cannula Oxygen Flow Rate 3 Fraction of Inspir ed Oxygen Hydration adequate: Yes Nausea and vomiting: No Pain level: 1 Mental status: Baseline
== END 2021-10-05 10:12 | disposition home or self-care (01) ==
PROVIDERS: PCP Family Medicine; Visit Provider Internal Medicine
PROC: 0DJ08ZZ Inspection of Upper Intestinal Tract, Via Natural or Artificial Opening Endoscopic (ICD-10-PCS; CPT 43235; principal; 2021-10-05 08:45)
DX: K22.70 Barrett's esophagus without dysplasia (principal); K21.9 Gastro-esophageal reflux disease without esophagitis; Z86.16 Personal history of COVID-19; M19.90 Unspecified osteoarthritis, unspecified site
CPT/HCPCS: 36415; 43235; 82140; J7030

== ENCOUNTER 2021-11-11 06:19 | Outpatient (CLI) | payer MEDICARE, SELFPAY ==
--- NOTE | 2021-11-11 06:15 | US_ITS ---
WS: [id number] RIGHT UPPER QUADRANT ULTRASOUND HISTORY: Alcoholic cirrhosis COMPARISON: 05/29/2020 Liver: 12.9 cm in length. Normal size liver with mild coarsened echotexture. Surface of the liver is irregular and slightly nodular. Similar to the prior study. No mass. No bile duct dilatation. Portal Vein: Normal hepatopetal flow with monophasic waveform. Gallbladder: Mild thickening of the gallbladder wall. No stones or pericholecystic fluid. CBD: 0.2 cm Pancreas: Normal size and echogenicity. Right kidney: 11.2 cm in length. Normal size and echogenicity. No hydronephrosis or mass. Aorta and IVC: Mild atherosclerosis aorta. Normal size IVC. No ascites. US/US liver [id number] IMPRESSION: 1. Normal size liver with changes of mild hepatic cirrhosis. Similar to the [facility] of 05/29/2020. 2. No hepatoma. 3. Very mild gallbladder wall thickening which is probably related to hepatoce llular disease. No cholelithiasis.
== END 2021-11-11 06:20 | disposition home or self-care (01) ==
LOC: RAD 06:20
PROVIDERS: PCP Family Medicine; Visit Provider Family Medicine
DX: K70.30 Alcoholic cirrhosis of liver without ascites (principal)
CPT/HCPCS: 76705

== ENCOUNTER → 2022-04-21 08:10 | Outpatient (BNVA) | payer MEDICARE, SELFPAY | PROVIDERS: PCP Family Medicine; Visit Provider Surgery | DX: K62.5 Hemorrhage of anus and rectum (principal) | CPT/HCPCS: 99203 ==

== ENCOUNTER 2022-04-22 09:01 | Day surgery (SDC) | payer MEDICARE, SELFPAY ==
[2022-04-21 10:32] VITALS: BMI 20.3
[2022-04-22 09:32] VITALS: BP 140/69; PULSE 62; RESP 18; TEMP 36.2; O2SAT 99
[2022-04-22] MEDS: sodium chloride 0.9% 1,000 ML 30 ML IV (09:40)
--- NOTE | 2022-04-22 09:40 | P.ANESASSM_ITS ---
Pre-Anesthetic Assessment Height/Weight: Height 1.83 m Weight 68.039 kg Temp Pulse Resp BP Pulse Ox O2 Del Method 97.1 F L 62 18 140/69 99 04/22/22 09:32 04/22/22 09:32 04/22/22 09:32 04/22/22 09:32 04/22/22 09:32 04/22/22 09:32 Preop Diagnosis: Bleeding per rectum Operation Date: 04/22/22 10:00 Proposed Procedures p Colonoscopy 48461,K62.5(Not Applicable) - Leon Thomson MD Familial anesthetic complications: none Last intake: Intake Last Liquid Date 04/21/22 Last Liquid Time 22:00 Last Solid Date 04/21/22 Last Solid Time 07:00 Social No alcohol (sober 7 years hx. of ETOH abuse.) and No tobacco (cannibus) few times per week. pack(s) per day Airway Submandibular: within normal limits Cervical ROM: within normal limits Mallampati: Class II Dentition: chipped Pulmonary None reported CV/HEM hypotension None reported Hepatic Cirrhosis portal HTN GI Gastroesophageal Reflux Disease rectal bleeding. Metabolic Diabetes Mellitus [facility] [place] None reported Neuropsych None reported Anesthetic Plan ASA status: 3 Anesthesia: MAC Medications/Allergies Home Medications Medication Instructions Recorded Confirmed Last Taken Type L.acidoph, paracasei,B. lactis 10 1 cell PO DAILY@0700 02/27/20 04/21/22 04/21/22 History billion cell capsule (Digestive Advantage Advanced Probiotic) puumtag-vqnkacoqq-qmss 333 mg-133 1 tab PO DAILY 02/27/20 04/21/22 04/21/22 History mg-5 mg tablet vit B complex 100 combo no.2 100 1 tab PO DAILY 02/27/20 04/21/22 04/21/22 History mg tablet,extended release (B-100 Complex ER) lancets 30 gauge (OneTouch [place] #100 ea 05/19/20 04/21/22 04/21/22 Rx Lancets) dexlansoprazole 60 mg 60 mg PO DAILY@0700 #90 caps 09/14/21 04/21/22 04/21/22 Rx capsule,biphase delayed release (Dexilant) sucralfate 1 gram tablet (Carafate) 1 g PO Q6H PRN heartburn #120 tabs 03/04/21/22 04/21/22 Rx blood sugar diagnostic #50 ea 11/06/21 04/21/22 04/21/22 Rx carvedilol 3.125 mg tablet 3.125 mg PO BID 04/21/22 04/22/22 04/21/22 20:00 History Allergies Allergy/AdvReac Type Severity Reaction Status Date / Time melon Allergy Intermediate ALGY-Difficulty Verified 04/21/22 16:20 Swallowing morphine Allergy Mild unknown Verified 04/21/22 16:20 Current Medications Generic Name Dose Route Start Last Admin Trade Name Freq PRN Reason Stop Dose Admin Sodium Chloride 1,000 mls @ 30 mls/hr 04/22/22 09:15 04/22/22 09:40 Sodium Chloride 0.9% IV 04/23/22 09:14 30 mls/hr .Q24H RONNELL Administration PFSH Anesthesia Medical History Alcoholic cirrhosis of liver Esophageal varices underwent banding in 2015 GERD (gastroesophageal reflux disease) History of abdominal paracentesis due to ascites in 2015 History of COVID-19 Feb 2019 Hypotension Lyme arthritis Osteoarthritis Portal hypertension Prediabetes Ruptured spleen Thrombocytopenia Tick bite of right shoulder with infection Surgical History No pertinent past surgical history Family History Other Cancer Social History Smoking and tobacco status: smoker, details unknown (Radha ) Alcohol intake: former Year of sobriety/quit date alcohol: 2014 History of recent travel: No Data Anesthesia Cardiac Studies: No Data to Display
[2022-04-22 09:43] LABS: Glucose Point of Care 126 mg/dL (70-110)
--- NOTE | 2022-04-22 09:56 | W.PM.OPSUD ---
Surgery/Procedure H&P Update DATE OF PROCEDURE: April 22, 2022 DATE H&P PERFORMED: 04/21/22 H&P UPDATE INFORMATION: I have reviewed H&P completed within last 30 days, I have examined patient prior to procedure and No changes to prior documentation PREOP DIAGNOSIS: Bleeding per rectum PRIMARY INDICATION FOR PROCEDURE: The same PLANNED PROCEDURE: Operation Date: 04/22/22 10:00 Proposed Procedures p Colonoscopy 37690,K62.5(Not Applicable) - Leon Thomson MD
[2022-04-22 10:24] VITALS: BP 111/67; PULSE 63; RESP 14; TEMP 36.1; O2SAT 97
[2022-04-22 10:36] VITALS: BP 118/74; PULSE 63; RESP 16; O2SAT 98
--- NOTE | 2022-04-22 13:24 | ANE.PACU2 ---
Inpatient post-anesthesia follow up: Airway intact: Yes Vital signs: Temperature 97.0 F Pulse Rate 63 Respiratory Rate 16 Blood Pressure 118/74 Pulse Oximetry 98 Oxygen Delivery Me thod Room Air Oxygen Flow Rate Fraction of Inspir ed Oxygen Hydration adequate: Yes Nausea and vomiting: No Pain level: 1 Mental status: Baseline
== END 2022-04-22 10:51 | disposition home or self-care (01) ==
PROVIDERS: PCP Electrodiagnostic Medicine; Visit Provider Surgery
PROC: 0DJD8ZZ Inspection of Lower Intestinal Tract, Via Natural or Artificial Opening Endoscopic (ICD-10-PCS; CPT 45378; principal; 2022-04-22 10:00)
DX: K62.5 Hemorrhage of anus and rectum (principal); D12.2 Benign neoplasm of ascending colon; I10 Essential (primary) hypertension; E11.9 Type 2 diabetes mellitus without complications; K21.9 Gastro-esophageal reflux disease without esophagitis; Z86.16 Personal history of COVID-19; M19.90 Unspecified osteoarthritis, unspecified site
CPT/HCPCS: 36416; 45380; 82962; 88305; J2704; J7030

== ENCOUNTER → 2022-05-06 15:43 | Outpatient (BNVA) | payer MEDICARE, SELFPAY | PROVIDERS: PCP Electrodiagnostic Medicine; Visit Provider Surgery | DX: Z09 Encounter for follow-up examination after completed treatment for conditions other than malignant neoplasm (principal); K63.5 Polyp of colon | CPT/HCPCS: 99212 ==

== ENCOUNTER 2025-01-03 12:37 | Outpatient (CLI) | payer MEDICARE, SELFPAY ==
--- NOTE | 2025-01-03 12:52 | USCV_ITS ---
Geovani Andrew Age: 59 Gender: M : 1965 Exam Date: 01/03/2025 12:59 Ordering Phys: Mateo Colón DO Technologist: ANDRE Exam Location: [facility] – [place] Indication: Stenosis Risk Factors: Previous Vascular Surgery: Right Brachial BP: / Left Brachial BP: / Right Left Velocity (cm/s) Spectral Plaque Velocity (cm/s) Spectral Plaque Syst/Diast Broadening Syst/Diast Broadening 131.20/25.40 Prox CCA 121.30/ 31.40 121.70/28.90 Mid CCA 117.50/ 33.00 99.40/ 25.20 Distal CCA 96.00 / 31.80 82.80/ 23.30 Prox ICA 56.60 / 18.10 87.10/ 26.60 Mid ICA 63.60 / 24.20 96.10/ 31.90 Distal ICA 77.20 / 30.80 106.60 ECA 110.80 0.80 ICA/CCA 0.60 Antegrade Vertebral Antegrade 46.90/ 8.40 cm/s 44.50/ 15.10 cm/s Tri Subclavian Tri 136.9 113.3 0 0 CONCLUSIONS Right ICA stenosis <50%. Moderate atheromatous plaque right carotid bulb/ICA. Left ICA stenosis <50%. Moderate atheromatous plaque left carotid bulb/ICA. Intimal thickening in the common carotid arteries and internal carotid arteries bilaterally. Normal antegrade Doppler flow noted in the right vertebral artery. Normal antegrade Doppler flow noted in the left vertebral artery. Enzo Allan MD (Electronically Signed) Final Date: 03 January 2025 16:15 S
== END 2025-01-03 12:38 | disposition home or self-care (01) ==
LOC: RAD 12:40
PROVIDERS: PCP Electrodiagnostic Medicine; Visit Provider Electrodiagnostic Medicine
DX: I65.23 Occlusion and stenosis of bilateral carotid arteries (principal)
CPT/HCPCS: 93880